=== PATIENT | male | born 1995 | race Asian ===

== ENCOUNTER 2018-02-24 13:06 | Emergency (ER) | payer OTHER ==
[~2018-02-24] VITALS: Ht 190.5 cm; Wt 110.7 kg
[2018-02-24 14:13] VITALS: BP 117/78; TEMP 97.9
== END 2018-02-24 14:13 | disposition home or self-care (01) ==
LOC: ED 13:06
DX: S83.281A Other tear of lateral meniscus, current injury, right knee, initial encounter (principal); X58.XXXA Exposure to other specified factors, initial encounter
CPT/HCPCS: 99282